=== PATIENT | female | born 1955 | race Native Hawaiian/Other Pacific Islander ===

== ENCOUNTER 2017-01-29 14:47 | Emergency (ER) | payer MEDICAID ==
[2017-01-29 14:54] VITALS: BP 123/84; PULSE 78; RESP 16; TEMP 97.8; O2SAT 99
--- NOTE | 2017-01-29 15:44 | ED PDOC ---
HPI: General Adult Time Seen by Provider: 01/29/17 14:52 Chief Complaint (Nursing): ENT Problem Chief Complaint (Provider): Left Ear Pain History Per: Patient History/Exam Limitations: no limitations Onset/Duration Of Symptoms: Days Have you had recent travel within the past 21 days to any of the following countries: [place], [place], [place] or [place]?: No Current Symptoms Are (Timing): Still Present Additional Complaint(s): Jacinta Estrada, a 61 year old female. presents to the ED complaining of left ear pain x10 days. The patient states that initially she was seen by an ENT specialist who prescribed her mupirocin ointment but after using the ointment she realized her symptoms were not getting any better. She reports that she then returned to the specialist and this time he gave her rocephin IM and zithromycin which also offered no relief. She goes on to say that today she was seen at urgent care who prompted her to come into the ED to be seen by an ENT specialist. Past Medical History Reviewed: Historical Data, Nursing Documentation, Vital Signs Vital Signs: Last Vital Signs Temp 97.8 F 01/29/17 14:53 Pulse 78 01/29/17 14:53 Resp 16 01/29/17 14:53 BP 123/84 01/29/17 14:53 Pulse Ox 99 01/29/17 16:02 - Medical History PMH: No Chronic Diseases - Surgical History Surgical History: Appendectomy - Family History Family History: States: No Known Family Hx - Social History Current smoker - smoking cessation education provided: No Ex-Smoker (has not smoked in the last 12 months): No Alcohol: None Drugs: Denies - Home Medications Home Medications: Ambulatory Orders Medication Instructions Recorded Ciprofloxacin/Hydrocortisone 10 ml XX BID 7 Days verenice 01/29/17 [Cipro Hc 0.2%-1% 10 ml] Clindamycin [Cleocin] 300 mg PO QID #40 cap 01/29/17 - Allergies Allergies/Adverse Reactions: Allergies Allergy/AdvReac Type Severity Reaction Status Date / Time No Known Allergies Allergy Verified 01/29/17 14:55 Review of Systems ROS Statement: Except As Marked, All Systems Reviewed And Found Negative ENT: Positive for: Ear Pain (left ear pain) Physical Exam - Reviewed Nursing Documentation Reviewed: Yes Vital Signs Reviewed: Yes - Physical Exam Appears: Positive for: Non-toxic, No Acute Distress Head Exam: Positive for: ATRAUMATIC, NORMAL INSPECTION, NORMOCEPHALIC Skin: Positive for: Normal Color, Warm, Dry. Negative for: Diaphoresis ENT: Positive for: Other (no edema around tragonal area; No tenderness or erythema to mastoid.) Neurologic/Psych: Positive for: Alert, Oriented - ECG O2 Sat by Pulse Oximetry: 99 (RA) Pulse Ox Interpretation: Normal Medical Decision Making Medical Decision Makin Initial Impression 61 y/o female presenting with left ear pain Initial Plan: * Toradol 30mg IM * Wound culture and Gram Stain * Reevaluation 1545 Patient is medically stable and will be discharged home with antibiotics and instructions to follow up with ENT specialist. Scribe Attestation Documented by Maddison Madera acting as a scribe for Lady Barahona PA-C. Scribe Attestation All medical record entries made by the Scribe were at my direction and personally dictated by me. I have reviewed the chart and agree that the record accurately reflects my personal performance of the history, physical exam, medical decision making, and the department course for this patient. I have also personally directed, reviewed, and agree with the discharge instructions and disposition. Disposition - Clinical Impression Clinical Impression: Otitis externa - Disposition Disposition: Routine/Home Disposition Time: 15:50 Condition: STABLE Prescriptions: Ciprofloxacin/Hydrocortisone [Cipro Hc 0.2%-1% 10 ml] 10 ml XX BID 7 Days verenice Clindamycin [Cleocin] 300 mg PO QID #40 cap Instructions: Otitis Externa (ED) Forms: [facility] (Russian) - POA Present On Arrival: None
== END 2017-01-29 15:47 | disposition home or self-care (01) ==
LOC: H.ER 14:47
DX: H60.92 Unspecified otitis externa, left ear (principal)
CPT/HCPCS: 87070; 87181; 96372; 99281; J1885

== ENCOUNTER 2017-11-29 18:05 | Emergency (ER) | payer SELFPAY ==
[2017-11-29 18:13] VITALS: O2SAT 98
[2017-11-29] MEDS ORDERED: Sodium Chloride 0.9% 1,000 ML IV STA ×2 (18:35→20:51)
--- NOTE | 2017-11-29 18:58 | CT ---
Date of service: 11/29/2017 PROCEDURE: CT HEAD WITHOUT CONTRAST. HISTORY: headache COMPARISON: None available. TECHNIQUE: Axial computed tomography images were obtained through the head/brain without intravenous contrast. Radiation dose: Total exam DLP = 783.1 mGy-cm. This CT exam was performed using one or more of the following dose reduction techniques: Automated exposure control, adjustment of the mA and/or kV according to patient size, and/or use of iterative reconstruction technique. FINDINGS: HEMORRHAGE: No intracranial hemorrhage. BRAIN: No mass effect or edema. No atrophy or chronic microvascular ischemic changes. VENTRICLES: Unremarkable. No hydrocephalus. CALVARIUM: Unremarkable. PARANASAL SINUSES: Unremarkable as visualized. No significant inflammatory changes. MASTOID AIR CELLS: Unremarkable as visualized. No inflammatory changes. OTHER FINDINGS: None. IMPRESSION: No acute intracranial pathology.
[2017-11-29 19:04] LABS: BASO % 0.7 % (0.0-2.0); HEMOGLOBIN 13.7 g/dL (12.0-16.0); LYMPH # 1.1 K/uL (1.0-4.3); LYMPH % 24.3 % (20.0-40.0); MEAN CELL VOLUME 90.9 fl (81.0-99.0); MEAN CORPUSCULAR HEMOGLOBIN 30.7 pg (27.0-31.0); MEAN CORPUSCULAR HGB CONC 33.8 g/dL (33.0-37.0); MEAN PLATELET VOLUME 7.9 fl (7.2-11.7); MONO # 0.4 K/uL (0.0-0.8); MONO % 7.7 % (0.0-10.0); NEUT % 66.3 % (50.0-75.0); NRBC % 0.1 % (0.0-0.0); RBC 4.47 Mil/uL (3.80-5.20); RED CELL DISTRIBUTION WIDTH 12.8 % (11.5-14.5); WHITE BLOOD COUNT 4.6 K/uL (4.8-10.8)
--- NOTE | 2017-11-29 19:10 | ED PDOC ---
HPI: Headache Time Seen by Provider: 11/29/17 18:19 Chief Complaint (Nursing): Dizziness/Lightheaded Chief Complaint (Provider): Headache History Per: Patient History/Exam Limitations: no limitations Onset/Duration Of Symptoms: Hrs Current Symptoms Are (Timing): Still Present Associated Symptoms: Vomiting Additional History Per: Patient Additional Complaint(s): 62yo female, no medical history, comes to ER with complaints of a frontal headache since this morning with associated dizziness and 1 episode of vomiting. Patient describes the dizziness as room spinning sensation and also describes lightheadedness. Per patient's , he states she appears pale and weak. She states the dizziness worsens with moving her head. Of note, patient reports she recently returned from a trip to [email or web address]. Otherwise, denies any abdominal pain, changes in vision, chest pain, shortness of breath, diarrhea or urinary symptoms. She also denies any vaginal bleeding or blood per rectum. Past Medical History Reviewed: Historical Data, Nursing Documentation, Vital Signs Vital Signs: Last Vital Signs Temp 97.9 F 11/29/17 18:10 Pulse 77 11/29/17 18:10 Resp 20 11/29/17 18:10 BP 106/73 11/29/17 18:10 Pulse Ox 98 11/29/17 18:10 - Medical History PMH: No Chronic Diseases - Surgical History Surgical History: Appendectomy - Family History Family History: States: No Known Family Hx - Social History Current smoker - smoking cessation education provided: No Alcohol: None Drugs: Denies - Home Medications Home Medications: Ambulatory Orders Medication Instructions Recorded Ciprofloxacin/Hydrocortisone 10 ml XX BID 7 Days verenice 01/29/17 [Cipro Hc 0.2%-1% 10 ml] Clindamycin [Cleocin] 300 mg PO QID #40 cap 01/29/17 Meclizine [Antivert] 25 mg PO Q6 PRN #12 tab 11/29/17 - Allergies Allergies/Adverse Reactions: Allergies Allergy/AdvReac Type Severity Reaction Status Date / Time No Known Allergies Allergy Verified 11/29/17 18:09 Review of Systems ROS Statement: Except As Marked, All Systems Reviewed And Found Negative Constitutional: Negative for: Fever, Chills Cardiovascular: Positive for: Light Headedness. Negative for: Chest Pain Respiratory: Negative for: Shortness of Breath Gastrointestinal: Positive for: Vomiting. Negative for: Diarrhea Genitourinary Female: Negative for: Dysuria, Hematuria Neurological: Positive for: Headache, Dizziness Physical Exam - Reviewed Nursing Documentation Reviewed: Yes Vital Signs Reviewed: Yes - Physical Exam Appears: Positive for: Non-toxic, No Acute Distress Head Exam: Positive for: ATRAUMATIC, NORMAL INSPECTION, NORMOCEPHALIC Skin: Positive for: Warm, Pallor Eye Exam: Positive for: EOMI, Normal appearance, PERRL Neck: Positive for: Normal, Supple Cardiovascular/Chest: Positive for: Regular Rate, Rhythm Respiratory: Positive for: Normal Breath Sounds Pulses-Dorsalis Pedis (L): 2+ Pulses-Dorsalis Pedis (R): 2+ Pulses-Radial (L): 2+ Pulses-Radial (R): 2+ Gastrointestinal/Abdominal: Positive for: Normal Exam, Soft Back: Positive for: Normal Inspection Extremity: Positive for: Normal ROM, Other (lower extremities cool to touch) Neurologic/Psych: Positive for: Alert, Oriented. Negative for: Motor/Sensory Deficits - Laboratory Results Result Diagrams: 11/29/17 18:59 11/29/17 18:59 - ECG O2 Sat by Pulse Oximetry: 98 (RA) Pulse Ox Interpretation: Normal Medical Decision Making Medical Decision Making: Plan: Patient to be worked up for dizziness, headache and presyncope. Labs and CT head w/o contrast ordered. IV Fluids given. 1909 Patient signed out to Dr. Quezada pending CT results, reassessment. Scribe Attestation: Documented by Brenda Cash, acting as a scribe for Elmo Maurer DO. Provider Scribe Attestation: All medical record entries made by the Scribe were at my direction and personally dictated by me. I have reviewed the chart and agree that the record accurately reflects my personal performance of the history, physical exam, medical decision making, and the department course for this patient. I have also personally directed, reviewed, and agree with the discharge instructions and disposition. Disposition - Clinical Impression Clinical Impression: Vertigo - Patient ED Disposition Is Patient to be Admitted: Transfer of Care - Disposition Disposition: Transfer of Care Disposition Time: 19:10 Condition: STABLE Prescriptions: Meclizine [Antivert] 25 mg PO Q6 PRN #12 tab PRN Reason: Dizziness Instructions: Vertigo (a Type of Dizziness) Forms: [employer] (Tunisian) Patient Signed Over To: Abilio Quezada
[2017-11-29 19:11] LABS: INR 1.1; PROTHROMBIN TIME 11.8 Seconds (9.8-13.1)
[2017-11-29 19:14] LABS: PARTIAL THROMBOPLASTIN TIME 42.3 Seconds (25.6-37.1)
[2017-11-29 19:15] LABS: ALB/GLOB RATIO 1.4 (1.0-2.1); ALT/SGPT 39 U/L (9-52); AST/SGOT 35 U/L (14-36); BLOOD UREA NITROGEN 14 mg/dl (7-17); CALCIUM 9.7 mg/dL (8.4-10.2); GFR NON-AFRICAN AMERICAN > 60; LIPASE 76 U/L (23-300)
--- NOTE | 2017-11-29 20:18 | ED PDOC ---
- Laboratory Results Result Diagrams: 11/29/17 18:59 11/29/17 18:59 - ECG O2 Sat by Pulse Oximetry: 98 (RA) Pulse Ox Interpretation: Normal Medical Decision Making Medical Decision Making: Time: 1909 Patient signed out to me by Dr. Maurer pending labs, CT study. Time: 1914 CT Head FINDINGS: HEMORRHAGE: No intracranial hemorrhage. BRAIN: No mass effect or edema. No atrophy or chronic microvascular ischemic changes. VENTRICLES: Unremarkable. No hydrocephalus. CALVARIUM: Unremarkable. PARANASAL SINUSES: Unremarkable as visualized. No significant inflammatory changes. MASTOID AIR CELLS: Unremarkable as visualized. No inflammatory changes. OTHER FINDINGS: None. IMPRESSION: No acute intracranial pathology. Time: 2115 Labs reviewed and show no acute abnormalities. Patient reports persistent symptoms, Meclinzine 25mg given. Time: 2244 Patient reports improvement in symptoms after Meclizine. Patient stable for discharge home; states she has a PMD in [place] with whom she will follow up. Return precautions given. Diagnosis: Vertigo Scribe Attestation: Documented by Brenda Cash, acting as a scribe for Abilio Quezada MD. Provider Scribe Attestation: All medical record entries made by the Scribe were at my direction and personally dictated by me. I have reviewed the chart and agree that the record accurately reflects my personal performance of the history, physical exam, medical decision making, and the department course for this patient. I have also personally directed, reviewed, and agree with the discharge instructions and disposition. Disposition - Clinical Impression Clinical Impression: Vertigo - POA Present On Arrival: None - Disposition Disposition: Routine/Home Disposition Time: 22:46 Condition: STABLE Prescriptions: Meclizine [Antivert] 25 mg PO Q6 PRN #12 tab PRN Reason: Dizziness Instructions: Vertigo (a Type of Dizziness) Forms: [employer] (Y[place]i)
[2017-11-29 21:06] LABS: SQUAMOUS EPITHIAL 1 /hpf (0-5); URINE BILIRUBIN NEGATIVE (NEGATIVE); URINE BLOOD NEGATIVE (NEGATIVE); URINE CLARITY CLEAR (Clear); URINE COLOR STRAW (YELLOW); URINE GLUCOSE (UA) NEG (Normal); URINE LEUKOCYTE ESTERASE NEG Leu/uL (Negative); URINE PROTEIN NEGATIVE (NEGATIVE); URINE UROBILINOGEN 0.2-1.0 mg/dL (0.2-1.0)
[2017-11-29 22:40] LABS: BARBITURATES, UR NEGATIVE (NEGATIVE); BENZODIAZEPINES, UR NEGATIVE (NEGATIVE); OPIATES, UR NEGATIVE (NEGATIVE); PHENCYCLIDINE, UR NEGATIVE (NEGATIVE)
[2017-11-29 23:47] VITALS: BP 111/74; PULSE 74; RESP 17; TEMP 98.1
--- NOTE | 2017-11-30 08:32 | RAD ---
Date of service: 11/29/2017 HISTORY: SOB COMPARISON: No prior. FINDINGS: LUNGS: The lungs are well inflated and clear. PLEURA: No significant pleural effusion identified, no pneumothorax apparent. CARDIOVASCULAR: Normal. OSSEOUS STRUCTURES: No significant abnormalities. VISUALIZED UPPER ABDOMEN: Normal. OTHER FINDINGS: None. IMPRESSION: No active pulmonary disease.
--- NOTE | 2017-11-30 08:48 | CARD ---
APPROVED REPORT Date of service: 11/29/2017 <Conclusion> Normal sinus rhythm Normal ECG
== END 2017-11-29 22:34 | disposition home or self-care (01) ==
LOC: H.ER 18:05
DX: R42 Dizziness and giddiness (principal)
CPT/HCPCS: 70450; 71045; 80053; 81003; 82550; 82948; 83690; 83735; 84100; 84443; 84484; 85025; 85610; 85730; 86850; 86900; 93005; 96360; 96361; 99285; G0480; J7030